=== PATIENT | male | born 1970 | race Caucasian/White ===

== ENCOUNTER 2023-11-01 07:16 | Day surgery (SDC) | payer BC, MEDICAID ==
[2023-11-01] MEDS ORDERED: MEPERIDINE 100 MG INJ. 100 MG/ML VIAL ONE (09:10)
[2023-11-01] MEDS ORDERED: MIDAZOLAM HCL 5 MG/5 ML VIAL ONE ×2 (09:10→09:23)
[2023-11-01 12:04] VITALS: BP_SYST 156; PULSE 74; RESP 18; TEMP 97.8; O2SAT 98
== END 2023-11-01 10:30 | disposition home or self-care (01) ==
LOC: SDS 07:16 → SMU 07:19 → SDS 10:30
PROVIDERS: ATTEND Internal Medicine Gastroenterology
DX: Z12.11 Encounter for screening for malignant neoplasm of colon (principal); K63.5 Polyp of colon; K29.50 Unspecified chronic gastritis without bleeding; K31.89 Other diseases of stomach and duodenum; R10.13 Epigastric pain; K21.00 Gastro-esophageal reflux disease with esophagitis, without bleeding; K64.8 Other hemorrhoids; I10 Essential (primary) hypertension; E11.9 Type 2 diabetes mellitus without complications; Z87.891 Personal history of nicotine dependence; Z79.899 Other long term (current) drug therapy; Z89.429 Acquired absence of other toe(s), unspecified side; Z80.1 Family history of malignant neoplasm of trachea, bronchus and lung
CPT/HCPCS: 45380; 43239; 87081; 36415; 82948; 88305; 88312; 88313; 99153; 99152; G0378; J2250; J2175